=== PATIENT | male | born 1950 | race Two or more races ===

== ENCOUNTER 2018-10-07 10:22 | Emergency (ER) | payer SELFPAY ==
[~2018-10-07] VITALS: Ht 175.3 cm; Wt 72.0 kg
[2018-10-07 10:35] VITALS: BP 161/90
== END 2018-10-07 15:02 | disposition home or self-care (01) ==
LOC: ER 11:50
DX: J02.9 Acute pharyngitis, unspecified (principal); K21.9 Gastro-esophageal reflux disease without esophagitis
CPT/HCPCS: 87070; 87430; 99283